=== PATIENT | female | born 1995 | race Two or more races ===

== ENCOUNTER → 2017-07-02 20:41 | Emergency (ER) | payer SELFPAY | END | disposition left against medical advice (07) | DRG 951 | LOC: ED 20:41 | DX: Z53.9 Procedure and treatment not carried out, unspecified reason (principal) ==

== ENCOUNTER 2017-08-12 21:45 | Emergency (ER) | payer OTHER ==
[2017-08-12] MEDS ORDERED: AZITHROMYCIN 250 MG TAB PO ONE (23:27)
[2017-08-12] MEDS ORDERED: METRONIDAZOLE 250 MG TAB PO ONE (23:27)
[2017-08-12] MEDS ORDERED: ONDANSETRON 4 MG ODT BU ONE (23:27)
[2017-08-12] MEDS ORDERED: CEFTRIAXONE 1 GM PDS IM ONE (23:27)
[2017-08-13] MEDS ORDERED: LEVONORGESTREL 1.5 MG TAB PO ONE (01:00)
[2017-08-13] MEDS ORDERED: ONDANSETRON 4 MG ODT ONE (01:03)
[2017-08-13] MEDS ORDERED: CEFTRIAXONE 1 GM PDS ONE (01:22)
[2017-08-13] MEDS ORDERED: METRONIDAZOLE 250 MG TAB ONE (01:22)
[2017-08-13] MEDS ORDERED: AZITHROMYCIN 250 MG TAB ONE (01:23)
[2017-08-13] MEDS ORDERED: LIDOCAINE HCL 1% MPF SOL ONE (01:38)
[2017-08-13 03:27] VITALS: TEMP 98.6
[2017-08-13 07:03] VITALS: O2SAT 100
[2017-08-13 07:57] VITALS: BP 135/57; PULSE 98; RESP 16
== END 2017-08-13 02:10 ==
LOC: ED 21:45
DX: T74.21XA Adult sexual abuse, confirmed, initial encounter (principal); Y07.59 Other non-family member, perpetrator of maltreatment and neglect
CPT/HCPCS: 84703; 96372; 99284; 99285; J0696; J2001